=== PATIENT | female | born 1990 | race Caucasian/White ===

== ENCOUNTER 2024-09-28 13:35 | Outpatient (AMB) | payer OTHER, SELFPAY ==
--- NOTE | 2024-09-28 13:35 | AMB.OBINITIA ---
Vital Signs 09/28/24 13:45 Height 1.65 m Height Method Stated Weight 84.141 kg Weight Measurement Method Standing Scale BMI 30.9 BP 125/79 Blood Pressure Source Manual Cuff- Auscultation Blood Pressure Location Left Upper Arm Position Sitting Respiration 16 Pulse 86 Pulse Source Monitor Temp 98.1 F Temp Source Oral Pulse Oximetry (%) 99 Oxygen Delivery Method Room Air Allergies/Home Meds Allergies & Medications Allergies No Known Allergies Allergy (Verified 09/28/24 13:49) Medication Reconciliation No Known Home Medications 09/28/24 [History Confirmed 09/28/24] Intake Visit Data Collection New Patient or Established: New Patient (never been to [facility]) Reason for Visit:: OB INITIAL SEEN ONCE SOMEWHERE ELSE Seen by Clinical Staff ONLY (RN/MA): No Soloist Dancer Required: No Do You Feel Safe at Home: Yes Authorities Contacted: N/A PCP or OBGYN visit in last 3 months: Yes Date of Last PCP or OBGYN visit: 08/31/24 Hx Now: Yes Are you currently on any form of Control: No Last menstrual period: 05/18/24 Pain Present Currently: No Pain Scale Used: Calderon-Mosley/Numerical Pain scale:: 0 Smoking Status Smoking Status: Former smoker Questionnaires PHQ-9 PHQ-2 Over the last 2 weeks, how often have you been bothered by any of the following problems? 1. Little interest or pleasure in doing things: not at all 2. Feeling down, depressed, or hopeless: not at all Total score: 0 PHQ-9 3. Trouble falling or staying asleep, or sleeping too much: Not at all 4. Feeling tired or having little energy: Not at all 5. Poor appetite or overeating: Not at all 6. Feeling bad about yourself - or that you are a failure or have let yourself or your family down: Not at all 7. Trouble concentrating on things, such as reading the newspaper or watching television: Not at all 8. Moving or speaking so slowly that other people could have noticed? - Or the opposite - being so fidgety or restless that you have been moving around a lot more than usual: not at all 9. Thoughts that you would be better off or of hurting yourself in some way: Not at all Total score: 0 Source: Developed by Drs. Neil Conn, Heather Hollins, Reji Lopes and colleagues, with an educational neo from [employer]. Social History Living Situation History Marital Status: Lives With: Family Housing: House Tobacco History Smoking Status: Former smoker Alcohol History Alcohol Intake: Former Domestic Abuse History Do You Feel Safe at Home: Yes Past Medical History Past Medical History Have you ever been diagnosed with any of the following: History of Present Illness HPI Narrative The patient is a 34-year-old -0-1-1 history of miscarriage x 1 in the past and 1 in 5 2020 at 40 weeks. Patient stated that she pushed a long time and her daughter weighed 8 pounds 10 ounces at . 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 She has an LMP of 05/18/2024 and is 19 weeks today. OB Initial Visit Menstrual History Menstrual reliability: definite Flow: normal Menstrual regularity: regular Monthly: Yes Age at menarche: 14 On control pills at conception: No Date of positive home test: 06/15/24 Infection History & Risk Evaluation History of STDs: none HIV risk evaluation: low risk Hepatitis B risk evaluation: low risk Patient or partner has history of Genital Herpes: No Varicella/chicken pox status: unknown Genetic Screening & History Genetic Screening/Teratology Counseling - Includes patient, baby's father, or anyone in either family with: 1. Patient's age 35 years or older as of estimated date of delivery: No 2. Thalassemia ([place] Islander, Occitan, Mediterranean, or Background); MCV less than 80: No 3. Neural Tube Defect (Meningomyelocele, Spina Bifida, or Anencephaly): No 4. Congenital Heart Defect: No 5. Down Syndrome: No 6. Anthony-Sachs (Ashkenazi Zoroastrian, Cajun, Tajik [place]): No 7. Jodie Disease (Ashkenazi Zoroastrian): No 8. Familial Dysautonomia (Ashkenazi Zoroastrian): No 9. Sickle Cell Disease or Trait (): No 10. Hemophilia or other blood disorders: No 11. Muscular Dystrophy: No 12. Cystic Fibrosis: No 13. Sumi's Chorea: No 14. Mental Retardation/Autism: No 15. Other inherited genetic or chromosomal disorder: No 16. Maternal Metabolic Disorder (EG,TYPE 1 Diabetes, PKU): No 17. Patient or baby's father had a child with defects not listed above: No 18. Recurrent loss or a stillbirth: No 19. Medications (including supplements, vitamins, herbs or otc drugs)/illicit/recreational drugs/alcohol since last menstrual period: No 20. Any other: No Comments/Counseling: Patient declines NIPT this . Infection History 1. Live with someone with TB or exposed to TB: No 2. Rash or viral illness since last menstrual period: No 3. Hepatitis B,C: No Other (see comments) Source: [employer] OB Flowsheet OB Flowsheet Initial Weight: Not Recorded Date <del>?</del> EGA Weight Edema CTX Effacement BP Fundal ht Pres Dilation Effacement Station Visit Note Alb Glu FHR Mov 09/28/24 <del>?</del> 18w 6d 84.141 kg 125/79 135 Review of Systems Review of Systems Narrative Review of Systems: Patient reports good energy. She reports good movement. She denies abnormal discharge or pelvic pain. She denies any vaginal bleeding. She denies nausea or vomiting or any significant problems this . Systems Reviewed: All systems reviewed, normal except as documented Exam General Limitations: no limitations General Appearance: alert, in no apparent distress, comfortable, cooperative, healthy appearing, well developed and well groomed Neck Neck exam: Present normal inspection, full ROM and trachea midline Chest Chest inspection: Present normal inspection and symmetric chest wall rise Resp Respiratory exam: Present normal lung sounds bilaterally Card Cardiovascular exam: Present regular rate, normal rhythm and normal heart sounds Abdominal Abdominal exam: Present soft and normal bowel sounds External exam: Present normal external exam Bimanual exam: Present normal bimanual exam, uterine enlargement and other (20 week size uterus, previous Pfannenstiel scar well-healed.) Extremities Extremities exam: Present normal inspection and full ROM Assessment & Plan Diagnosis / Problem List (1) Previous section: Status: Acute Plan: For repeat scheduled section at 39 weeks. (2) : Status: Acute Qualifiers: Weeks of gestation: 19 weeks Qualified Code(s): Z3A.19 - 19 weeks gestation of Plan: Patient denies any problems. She declines NIPT. She does have an ultrasound scheduled in October in [place] for structural survey and she will keep this appointment. It was under another physician's order so I will reorder her ultrasound. If there is any problems she should call. Patient did have a visit or 2 in [place] at this with Dr. Rizvi but wanted to follow here with me in [place]. Additional Plan Follow Up: 4 Weeks Office Procedures OB Clinic LOC & Office Proc's Nursing/Assessment Patient Status: Initial/New Patient OB Clinic Nursing Assessment: BP Monitoring, Medication Reconciliation, Update PMH in EMR and Vital Signs OB Clinic Coordination of Care: Complex Care and Chronic Disease 1-5 Special Needs: Heart tones New Patient Charge New Patient Point Assignment: 1099 New Patient Point Charge: OUTPATIENT PHYSICAL THERAPIST Level 2 ([id number])
[2024-09-28 13:45] VITALS: BP 125/79; PULSE 86; RESP 16; TEMP 36.7; O2SAT 99; BMI 30.9
== END 2024-09-28 14:35 | disposition home or self-care (01) ==
PROVIDERS: Supervising Provider Obstetrics & Gynecology; Visit Provider Obstetrics & Gynecology
DX: Z34.92 Encounter for supervision of normal pregnancy, unspecified, second trimester (principal); Z98.891 History of uterine scar from previous surgery; Z3A.19 19 weeks gestation of pregnancy
CPT/HCPCS: 99202; 99215; G0463

== ENCOUNTER 2024-10-23 13:11 | Outpatient (AMB) | payer OTHER, SELFPAY ==
[2024-10-23 13:14] VITALS: BP 107/71; PULSE 93; RESP 14; TEMP 36.1; O2SAT 98; BMI 31.9
--- NOTE | 2024-10-23 13:14 | OBCLNT_ITS ---
Vital Signs 10/23/24 13:14 Height 1.65 m Height Method Stated Weight 87.09 kg Weight Measurement Method Standing Scale BMI 31.9 BP 107/71 Blood Pressure Source Automatic Cuff Blood Pressure Location Left Upper Arm Position Sitting Respiration 14 Pulse 93 Pulse Source Monitor Temp 97 F Temp Source Oral Pulse Oximetry (%) 98 Oxygen Delivery Method Room Air Allergies/Home Meds Allergies & Medications Allergies No Known Allergies Allergy (Verified 10/23/24 13:15) Medication Reconciliation vitamin#30 30 mg iron-10 mg iron-folic acid 1 mg-omg3 capsule cap PO 10/23/24 [History Confirmed 10/23/24] Intake Visit Data Collection New Patient or Established: Established Patient (seen at [facility] within 3 years) Reason for Visit:: 4-week OB visit Seen by Clinical Staff ONLY (RN/MA): No Gauge Controller Required: No Do You Feel Safe at Home: Yes Authorities Contacted: N/A PCP or OBGYN visit in last 3 months: Yes Date of Last PCP or OBGYN visit: 09/28/24 Hx Now: Yes Are you currently on any form of Control: No Last menstrual period: 05/18/24 Pain Present Currently: No Pain Scale Used: Calderon-Mosley/Numerical Pain scale:: 0 Smoking Status Smoking Status: Former smoker Questionnaires Covid-19 Vaccine Questionnaire Has patient been vacinated for Covid-19 Have you been vacinated for Covid-19: No PHQ-9 PHQ-2 Over the last 2 weeks, how often have you been bothered by any of the following problems? 1. Little interest or pleasure in doing things: not at all 2. Feeling down, depressed, or hopeless: not at all Total score: 0 PHQ-9 3. Trouble falling or staying asleep, or sleeping too much: Not at all 4. Feeling tired or having little energy: Not at all 5. Poor appetite or overeating: Not at all 6. Feeling bad about yourself - or that you are a failure or have let yourself or your family down: Not at all 7. Trouble concentrating on things, such as reading the newspaper or watching television: Not at all 8. Moving or speaking so slowly that other people could have noticed? - Or the opposite - being so fidgety or restless that you have been moving around a lot more than usual: not at all 9. Thoughts that you would be better off or of hurting yourself in some way: Not at all Total score: 0 Source: Developed by Drs. Neil Conn, Heather Hollins, Reji Lopes and colleagues, with an educational neo from [employer]. Depression screen completed yes Social History Living Situation History Lives With: Family Housing: House Tobacco History Smoking Status: Former smoker Alcohol History Alcohol Intake: Former Domestic Abuse History Do You Feel Safe at Home: Yes Past Medical History Past Medical History Have you ever been diagnosed with any of the following: Neurological Problems Cerebrovascular Accident (CVA): No Transient Ischemic Attacks (TIA): No Dementia: No Alzheimer's Disease: No Parkinson's Disease: No Cardiology Problems Myocardial Infarction: No Cardiac Arrhythmia: No Atrial Fibrillation: No Respiratory Problems Chronic Obstructive Pulmonary Disease (COPD): No Orthopnea: No Hx Cough: No Cough: No Stomache/Intestinal Problems Liver Cancer: No Hepatitis: No Cirrhosis: No Genital/Urinary Problems Chronic Kidney Disease: No Renal Disease: No Kidney Stones: No Polycystic Kidney Disease: No Neurogenic Bladder: No Inguinal Hernia: No Dialysis: No Prostate Cancer: No Benign Prostatic Hyperplasia: No Reproductive Problems Breast Cancer: No Endometriosis: No Fibroids: No Musculoskeletal Problems Muscular Dystrophy: No Myasthenia Gravis: No Marfan's Syndrome: No Bone Cancer: No Arthritis: No Head,Eye,Nose,Throat Problems Cataracts: No Glaucoma: No Blind: No Retinal Detachment: No Macular Degeneration: No Chronic Ear Infections: No Deafness: No Eye Prosthesis: No Endocrine Problems Diabetes Mellitus Type 1: No Diabetes Mellitus Type 2: No Hypoglycemia: No Chuck's Syndrome: No Jean Pierre's Disease: No Blood Problems Anemia: No Leukemia: No Hemophilia: No Thalassemia: No Sickle Cell Disease: No Clotting Problems: No Psychologic Problems Schizophrenia: No Recreational Drug Use: No Bipolar Disorder: No Other Problems Hospitalization: No Autoimmune Disease: No Down Syndrome: No Autism: No Developmental Delay: No Surgical History Angioplasty: No Appendectomy: No Bariatric Surgery: No History of Present Illness HPI Narrative Patient is a 34-year-old -0-0-1 status post x 1 and presents for routine OB visit. She is 22-2/7 weeks today with an EDC of 02/22/2025. Patient is reporting good movement she denies any contractions or bleeding she knows this is a boy. She has a little girl at home. She had her labs drawn 10/03/2024 and we are waiting for those these were drawn at [email or web address] in [place]. She is concerned about weight gain she started 180 pounds this she is 192 pounds today. She has her ultrasound scheduled in [place] next week. Review of Systems Review of Systems Narrative Review of Systems: No contractions no vaginal bleeding good movement. Visit MERVIN Calculator Estimated Delivery Date Method Current WG Current Estimate 02/23/25 Ultrasound #1 22w 4d Other Estimates 02/22/25 LMP (Certain) 22w 5d Expected Delivery Route/Plan Patient will have a repeat without tubal ligation 02/17/25. Due date 02/22/2025. Initial Weight: Not Recorded Date -?-?-?-?-?-?-?-?-?-?-?-?- EGA Weight Edema CTX Effacement BP Fundal ht Pres Dilation Effacement Station Visit Note Alb Glu FHR Mov 09/28/24 -?-?-?-?-?-?-?-?-?-?-?-?- 18w 6d 84.141 kg 125/79 135 10/23/24 -?-?-?-?-?-?-?-?-?-?-?-?- 22w 3d 87.09 kg absent absent 107/71 25 Needs scheduled 154 Exam Narrative Physical exam: Fundus measuring 25 weeks nontender. Assessment & Plan Diagnosis / Problem List (1) Previous section: Status: Acute Plan: Schedule repeat approximately 725. Due date 02/22/2025. Patient declines tubal ligation. (2) : Status: Acute Qualifiers: Weeks of gestation: 19 weeks Qualified Code(s): Z3A.19 - 19 weeks gestation of Additional Plan Follow Up: 4 Weeks Office Procedures OB Clinic LOC & Office Proc's Nursing/Assessment Patient Status: Established Patient OB Clinic Nursing Assessment: Medication Reconciliation, Update PMH in EMR and Vital Signs OB Clinic Coordination of Care: Complex Care and Chronic Disease 1-5, Education Complex Pt/Fam, Consent,records obtained, informed consent, Education Simp Pt/Fam and Staff clarify orders Special Needs: Heart tones Established Patient Charge Established Patient Point Assignment: 135 Established Patient Point Charge: EP Level 4 (120-155)
== END 2024-10-23 13:40 | disposition home or self-care (01) ==
LOC: HODSOBC 13:11
PROVIDERS: Supervising Provider Obstetrics & Gynecology; Visit Provider Obstetrics & Gynecology
DX: Z34.82 Encounter for supervision of other normal pregnancy, second trimester (principal); Z98.891 History of uterine scar from previous surgery; Z3A.19 19 weeks gestation of pregnancy
CPT/HCPCS: 99214; G0463

== ENCOUNTER 2024-11-25 10:33 | Outpatient (AMB) | payer OTHER, SELFPAY ==
--- NOTE | 2024-11-23 12:42 | AMB.OBVISIT ---
Vital Signs 11/25/24 10:57 Height 1.65 m Height Method Stated Weight 88.054 kg Weight Measurement Method Standing Scale BMI 32.3 BP 107/69 Blood Pressure Source Automatic Cuff Blood Pressure Location Left Upper Arm Position Sitting Respiration 16 Pulse 80 Pulse Source Monitor Temp 97.4 F Temp Source Oral Pulse Oximetry (%) 97 Oxygen Delivery Method Room Air Allergies/Home Meds Allergies & Medications Allergies No Known Allergies Allergy (Verified 11/25/24 10:58) Medication Reconciliation vitamin#30 30 mg iron-10 mg iron-folic acid 1 mg-omg3 capsule cap PO 10/23/24 [History Confirmed 11/25/24] Intake Visit Data Collection New Patient or Established: Established Patient (seen at [facility] within 3 years) Reason for Visit:: CARE Seen by Clinical Staff ONLY (RN/MA): No Life Insurance Specialist Required: No Do You Feel Safe at Home: Yes Authorities Contacted: N/A PCP or OBGYN visit in last 3 months: Yes Hx Now: Yes Are you currently on any form of Control: No Pain Present Currently: No Pain Scale Used: Calderon-Mosley/Numerical Pain scale:: 0 Smoking Status Smoking Status: Former smoker Questionnaires Covid-19 Vaccine Questionnaire Has patient been vacinated for Covid-19 Have you been vacinated for Covid-19: No PHQ-9 PHQ-2 Over the last 2 weeks, how often have you been bothered by any of the following problems? 1. Little interest or pleasure in doing things: not at all 2. Feeling down, depressed, or hopeless: not at all Total score: 0 PHQ-9 3. Trouble falling or staying asleep, or sleeping too much: Not at all 4. Feeling tired or having little energy: Not at all 5. Poor appetite or overeating: Not at all 6. Feeling bad about yourself - or that you are a failure or have let yourself or your family down: Not at all 7. Trouble concentrating on things, such as reading the newspaper or watching television: Not at all 8. Moving or speaking so slowly that other people could have noticed? - Or the opposite - being so fidgety or restless that you have been moving around a lot more than usual: not at all 9. Thoughts that you would be better off or of hurting yourself in some way: Not at all Total score: 0 Source: Developed by Drs. Neil Conn, Heather Hollins, Reji Lopes and colleagues, with an educational neo from [email or web address]. Depression screen completed yes Social History Living Situation History Marital Status: Lives With: Family Housing: House 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: Yes Past Medical History Past Medical History Have you ever been diagnosed with any of the following: Neurological Problems Seizures: No Cardiology Problems Cardiac Arrhythmia: No Heart Murmur: No Respiratory Problems Asthma: No Smoking: No Stomache/Intestinal Problems Gall Bladder Disease: No Genital/Urinary Problems Renal Disease: No Kidney Stones: No Reproductive Problems Breast Cancer: No Endometriosis: No Fibroids: No Genital Herpes: No Gonorrhea: No Pelvic Inflammatory Disease: No Polycystic Ovarian Syndrome: No Previous Pregnancies: Yes (Previous x 1) Musculoskeletal Problems Arthritis: No Rheumatoid Arthritis: No Endocrine Problems Diabetes Mellitus Type 2: No Hyperthyroidism: No Hypothyroidism: No Blood Problems Anemia: No Psychologic Problems Depression: No Anxiety: No Attention Deficit Disorder: No Depression: No Other Problems Hospitalization: Yes (For ) Autoimmune Disease: No Cosmetic Surgery: No Blood Transfusions: No Anesthesia Reactions: No Surgical History Appendectomy: No Bariatric Surgery: No Breast Surgery: No Cholecystectomy: No Additional Surgical History: 2020 History of Present Illness HPI Narrative The patient is a 34-year-old -0-0-1 history of vaginal delivery x 1 in 2020. She has a 4-year-old daughter at home. She knows this she is having a son. She stated she had a glucose challenge test to [facility] and it reported back at 100. We will get these results on her chart. She pushed 3 hours with her first baby they turned her epidural off she can get the baby out and then she ended up with a she is scheduled for repeat she does not think she wants a tubal ligation. Her is planned for 02/17/25. Visit MERVIN Calculator Estimated Delivery Date Method Current WG Current Estimate 02/23/25 Ultrasound #1 27w 1d Other Estimates 02/22/25 LMP (Certain) 27w 2d Expected Delivery Route/Plan Patient will have a repeat without tubal ligation 02/17/25. Due date 02/22/2025. Initial Weight: Not Recorded Date <del>?</del> EGA Weight Edema CTX Effacement BP Fundal ht Pres Dilation Effacement Station Visit Note Alb Glu FHR Mov 09/28/24 <del>?</del> 18w 6d 84.141 kg 125/79 135 10/23/24 <del>?</del> 22w 3d 87.09 kg absent absent 107/71 25 Needs scheduled 154 11/25/24 <del>?</del> 27w 1d 88.054 kg absent absent 107/69 27 GCT 100 on pt portal from [employer] 165 active Assessment & Plan Diagnosis / Problem List (1) Previous section: Status: Acute Assessment and Plan: Schedule repeat at 39 weeks. EDC 02/22/2025. scheduled 02/17/25 (2) : Status: Acute Qualifiers: Weeks of gestation: 27 weeks Qualified Code(s): Z3A.27 - 27 weeks gestation of Additional Plan Follow Up: 2 Weeks Office Procedures OB Clinic LOC & Office Proc's Nursing/Assessment Patient Status: Established Patient OB Clinic Nursing Assessment: Medication Reconciliation, Update PMH in EMR and Vital Signs OB Clinic Coordination of Care: Complex Care and Chronic Disease 1-5, Consent,records obtained, informed consent, Education Simp Pt/Fam and Staff clarify orders Special Needs: Heart tones Established Patient Charge Established Patient Point Assignment: 115 Established Patient Point Charge: EP Level 3 (80-115)
[2024-11-25 10:57] VITALS: BP 107/69; PULSE 80; RESP 16; TEMP 36.3; O2SAT 97; BMI 32.3
== END 2024-11-25 11:13 | disposition home or self-care (01) ==
LOC: HODSOBC 10:33
PROVIDERS: Supervising Provider Obstetrics & Gynecology; Visit Provider Obstetrics & Gynecology
DX: O09.292 Supervision of pregnancy with other poor reproductive or obstetric history, second trimester (principal); O34.219 Maternal care for unspecified type scar from previous cesarean delivery; Z3A.27 27 weeks gestation of pregnancy; Z87.891 Personal history of nicotine dependence
CPT/HCPCS: 99213; G0463

== ENCOUNTER 2024-12-09 11:29 | Outpatient (AMB) | payer OTHER, SELFPAY ==
[2024-12-09 11:50] VITALS: BP 116/72; PULSE 86; RESP 18; TEMP 36.6; O2SAT 99; BMI 32.2
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
== END 2024-12-09 13:02 | disposition home or self-care (01) ==
LOC: HODSOBC 11:29
PROVIDERS: Supervising Provider Obstetrics & Gynecology; Visit Provider Obstetrics & Gynecology

== ENCOUNTER 2024-12-25 14:52 | Outpatient (AMB) | payer OTHER, SELFPAY ==
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
[2024-12-25 15:16] VITALS: BP 111/72; PULSE 105; RESP 20; TEMP 36.4; O2SAT 97; BMI 32.9
[2024-12-25 16:48] LABS: Bilirubin,Urine Clinitek Negative (Negative); Blood,Urine Clinitek Negative (Negative); Glucose, Urine Clinitek Negative (Negative); Ketones,Urine Clinitek Trace (Negative); Leukocyte Esterase,Urine Clin Negative (Negative); Nitrite,Urine Clinitek Negative (Negative); Protein,Urine Clinitek Negative (Neg - Trace); Specific Gravity,Urine Clin 1.025 (1.001-1.030); Urobilinogen,Urine Clinitek 0.2 mg/dL (0.0-1.0)
== END 2024-12-25 15:38 | disposition home or self-care (01) ==
LOC: HODSOBC 14:52
PROVIDERS: Supervising Provider Obstetrics & Gynecology; Visit Provider Obstetrics & Gynecology
DX: O09.293 Supervision of pregnancy with other poor reproductive or obstetric history, third trimester (principal); Z3A.31 31 weeks gestation of pregnancy; O34.219 Maternal care for unspecified type scar from previous cesarean delivery; Z87.891 Personal history of nicotine dependence
CPT/HCPCS: 81001; 99215; G0463

== ENCOUNTER 2025-01-18 11:10 | Outpatient (AMB) | payer OTHER, SELFPAY ==
[2025-01-18 13:08] VITALS: BP 109/61; PULSE 114; RESP 20; TEMP 36.2; O2SAT 98; BMI 32.5
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
== END 2025-01-18 13:28 | disposition home or self-care (01) ==
LOC: HODSOBC 11:10
PROVIDERS: Supervising Provider Obstetrics & Gynecology; Visit Provider Obstetrics & Gynecology
DX: O09.293 Supervision of pregnancy with other poor reproductive or obstetric history, third trimester (principal); Z3A.34 34 weeks gestation of pregnancy; O34.219 Maternal care for unspecified type scar from previous cesarean delivery; Z87.59 Personal history of other complications of pregnancy, childbirth and the puerperium; Z78.9 Other specified health status; Z87.891 Personal history of nicotine dependence
CPT/HCPCS: 99214; G0463

== ENCOUNTER 2025-01-27 11:04 | Outpatient (AMB) | payer OTHER, SELFPAY ==
[2025-01-27 11:43] VITALS: BP 111/72; PULSE 93; RESP 17; TEMP 36.6; O2SAT 98; BMI 32.5
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
== END 2025-01-27 12:35 | disposition home or self-care (01) ==
LOC: HODSOBC 11:04
PROVIDERS: Supervising Provider Obstetrics & Gynecology; Visit Provider Obstetrics & Gynecology
DX: O09.893 Supervision of other high risk pregnancies, third trimester (principal); Z3A.36 36 weeks gestation of pregnancy; O99.613 Diseases of the digestive system complicating pregnancy, third trimester; K64.5 Perianal venous thrombosis; O09.293 Supervision of pregnancy with other poor reproductive or obstetric history, third trimester; O34.219 Maternal care for unspecified type scar from previous cesarean delivery; Z87.59 Personal history of other complications of pregnancy, childbirth and the puerperium; Z87.891 Personal history of nicotine dependence; Z36.85 Encounter for antenatal screening for Streptococcus B
CPT/HCPCS: 99213; G0463

== ENCOUNTER 2025-02-03 09:48 | Outpatient (AMB) | payer OTHER, SELFPAY ==
[2025-02-03 10:16] VITALS: BP 100/68; PULSE 96; RESP 17; TEMP 36.6; O2SAT 96; BMI 32.7
--- NOTE | 2025-02-03 10:16 | OBCLNT_ITS ---
Vital Signs 02/03/25 10:16 Height 1.65 m Height Method Stated Weight 89.131 kg Weight Measurement Method Standing Scale BMI 32.7 BP 100/68 Blood Pressure Source Automatic Cuff Blood Pressure Location Right Upper Arm Position Sitting Respiration 17 Pulse 96 Pulse Source Monitor Temp 97.8 F Temp Source Temporal Artery Scan Pulse Oximetry (%) 96 Oxygen Delivery Method Room Air Allergies/Home Meds Allergies & Medications Allergies No Known Allergies Allergy (Verified 02/03/25 10:17) Medication Reconciliation vitamin#30 30 mg iron-10 mg iron-folic acid 1 mg-omg3 capsule cap PO 10/23/24 [History Confirmed 02/03/25] Intake Visit Data Collection New Patient or Established: Established Patient (seen at [facility] within 3 years) Reason for Visit:: OBC Seen by Clinical Staff ONLY (RN/MA): No Child Development Director Required: No Do You Feel Safe at Home: Yes Authorities Contacted: N/A PCP or OBGYN visit in last 3 months: Yes Date of Last PCP or OBGYN visit: 01/27/25 Hx Now: Yes Pain Present Currently: No Pain Scale Used: Calderon-Mosley/Numerical Pain scale:: 0 Smoking Status Smoking Status: Former smoker Questionnaires Covid-19 Vaccine Questionnaire Has patient been vacinated for Covid-19 Have you been vacinated for Covid-19: No PHQ-9 PHQ-2 Over the last 2 weeks, how often have you been bothered by any of the following problems? 1. Little interest or pleasure in doing things: not at all 2. Feeling down, depressed, or hopeless: not at all Total score: 0 PHQ-9 3. Trouble falling or staying asleep, or sleeping too much: Not at all 4. Feeling tired or having little energy: Not at all 5. Poor appetite or overeating: Not at all 6. Feeling bad about yourself - or that you are a failure or have let yourself or your family down: Not at all 7. Trouble concentrating on things, such as reading the newspaper or watching television: Not at all 8. Moving or speaking so slowly that other people could have noticed? - Or the opposite - being so fidgety or restless that you have been moving around a lot more than usual: not at all 9. Thoughts that you would be better off or of hurting yourself in some way: Not at all Total score: 0 If you checked off any problems, how difficult have these problems made it for you to do your work, take care of things at home, or get along with other p eople?: not difficult at all Source: Developed by Drs. Neil Conn, Heather Hollins, Reji Lopes and colleagues, with an educational neo from [employer]. Depression screen completed yes Social History Living Situation History Marital Status: Lives With: Family Housing: House Housing Other:: Has a four year old daughter at home. 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: Past Medical History Past Medical History: No Hx Hypothyroidism, No Hx Hyperthyroidism, No Hx Breast Cancer, No Hx Anemia, No Hx Renal Disease, No Hx Diabetes Mellitus Type 1, No Hx Diabetes Mellitus Type 2 and No Hx Polycystic Ovarian Syndrome Care OB Visit Log OB Flowsheet Initial Weight: Not Recorded Date -?-?-?-?-?-?-?-?-?-?-?-?- EGA Weight BP Alb Glu CTX Pres Fundal ht FHR Mov Dilation Station Effacement Hx Notes Visit Note 09/28/24 -?-?-?-?-?-?-?-?-?-?-?-?- 18w 6d 84.141 kg 125/79 135 10/23/24 -?-?-?-?-?-?-?-?-?-?-?-?- 22w 3d 87.09 kg 107/71 absent 25 154 Needs scheduled 7-10/1311/25/24 -?-?-?-?-?-?-?-?-?-?-?-?- 27w 1d 88.054 kg 107/69 absent 27 165 ac tive GCT 100 on pt portal from [facility] 12/09/24 -?-?-?-?-?-?-?-?-?-?-?-?- 29w 1d 87.713 kg 116/72 absent 30 156 ac tive scheduled CS 12/25/24 -?-?-?-?-?-?-?-?-?-?--?-?- 31w 3d 89.584 kg 111/72 absent 32 159 ac tive No USc, VB or LOF. CS date reviewed. Wants to go home in 24 hours 01/18/25 -?-?-?--?-?-?-?-?-?-?-?-?- 34w 6d 88.507 kg 109/61 occasional 33 158 active No contractions. Had some left rib pain after intercourse. Sounds like some type of a rib displacement and muscle spasm. This is gone now. No bleeding no loss of fluids no contractions. She is 36 weeks and will have a February 17. Needs a strep screen next visit 01/27/25 -?-?-?-?-?-?-?-?-?-?-?-?- 36w 1d 88.564 kg 111/72 occasional 35 163 active Has a thrombosed hemorrhoid. Tried to go to the ER at [facility] they sent her to triage and then sent her home without resolving her problem. Went to a walk-in clinic. Topical steroids and sitz bath's not effective. 3 x 2 cm thrombosed hemorrhoid present. 02/03/25 -?-?-?-?-?-?-?-?-?-?-?-?- 37w 1d 89.131 kg 100/68 occasional 37 ac tive No vaginal bleeding or loss of fluids. Dr. Kaur drained her thrombosed hemorrhoid and it feels much better. MERVIN Calculator Estimated Delivery Date Method Current WG Current Estimate 02/23/25 Ultrasound #1 37w 1d Other Estimates 02/22/25 LMP (Certain) 37w 2d Expected Delivery Route/Plan Patient is a 34-year-old -0-1-1 status post x 1 for arrest of descent. Patient will have a repeat without tubal ligation 02/17/25. Due date 02/22/2025. Specific Issue/Plans Rubella nonimmune for immunization labs: A positive\antibody negative\rubella nonimmune\RPR nonreactive\hepatitis B surface antigen negative\HIV negative Notes Visit Date: 01/27/25 Last Updated by: Prema Squires (OB Clinic), Group B strep swab performed. Patient referred to Dr. Sharee Kaur in [place] for drainage of thrombosed hemorrhoid. Visit Date: 01/18/25 Last Updated by: Prema Squires (OB Clinic)MD Will need GBS swab next visit Visit Date: 12/25/24 Last Updated by: Prema Squires (OB Clinic)MD CS date and time reviewed. Wants to go home in 24 hours Office Procedures OB Clinic LOC & Office Proc's Nursing/Assessment Patient Status: Established Patient OB Clinic Nursing Assessment: Medication Reconciliation, Update PMH in EMR and Vital Signs OB Clinic Coordination of Care: Complex Care and Chronic Disease 1-5, Consent,records obtained, informed consent, Education Simp Pt/Fam and Staff clarify orders Special Needs: Heart tones Established Patient Charge Established Patient Point Assignment: 115 Established Patient Point Charge: EP Level 3 (80-115)
== END 2025-02-03 10:34 | disposition home or self-care (01) ==
LOC: HODSOBC 09:48
PROVIDERS: Supervising Provider Obstetrics & Gynecology; Visit Provider Obstetrics & Gynecology
DX: O09.293 Supervision of pregnancy with other poor reproductive or obstetric history, third trimester (principal); O34.219 Maternal care for unspecified type scar from previous cesarean delivery; Z3A.37 37 weeks gestation of pregnancy; Z87.59 Personal history of other complications of pregnancy, childbirth and the puerperium; Z87.891 Personal history of nicotine dependence
CPT/HCPCS: 99213; G0463

== ENCOUNTER 2025-02-12 13:41 | Outpatient (AMB) | payer OTHER, SELFPAY ==
[2025-02-12 13:56] VITALS: BP 121/81; PULSE 110; RESP 17; TEMP 36.4; O2SAT 97; BMI 32.8
--- NOTE | 2025-02-12 13:56 | OBCLNT_ITS ---
Vital Signs 02/12/25 13:56 Height 1.65 m Height Method Measured Weight 89.414 kg Weight Measurement Method Standing Scale BMI 32.8 BP 121/81 Blood Pressure Source Automatic Cuff Blood Pressure Location Right Upper Arm Position Sitting Respiration 17 Pulse 110 H Pulse Source Monitor Temp 97.5 F Temp Source Temporal Artery Scan Pulse Oximetry (%) 97 Oxygen Delivery Method Room Air Allergies/Home Meds Allergies & Medications Allergies No Known Allergies Allergy (Verified 02/12/25 13:57) Medication Reconciliation vitamin#30 30 mg iron-10 mg iron-folic acid 1 mg-omg3 capsule cap PO 10/23/24 [History Confirmed 02/12/25] Intake Visit Data Collection New Patient or Established: Established Patient (seen at [facility] within 3 years) Reason for Visit:: OBC Seen by Clinical Staff ONLY (RN/MA): No 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 1. Little interest or pleasure in doing things: not at all 2. Feeling down, depressed, or hopeless: not at all Total score: 0 PHQ-9 3. Trouble falling or staying asleep, or sleeping too much: Not at all 4. Feeling tired or having little energy: Not at all 5. Poor appetite or overeating: Not at all 6. Feeling bad about yourself - or that you are a failure or have let yourself or your family down: Not at all 7. Trouble concentrating on things, such as reading the newspaper or watching television: Not at all 8. Moving or speaking so slowly that other people could have noticed? - Or the opposite - being so fidgety or restless that you have been moving around a lot more than usual: not at all 9. Thoughts that you would be better off or of hurting yourself in some way: Not at all Total score: 0 If you checked off any problems, how difficult have these problems made it for you to do your work, take care of things at home, or get along with other people?: not difficult at all Source: Developed by Drs. Neil Conn, Heather Hollins, Reji Lopes and colleagues, with an educational neo from [employer]. Depression screen completed yes Social History Living Situation History Lives With: Family Housing: House Housing Other:: Has a four year old daughter at home. 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: Past Medical History Past Medical History: No Hx Hypothyroidism, No Hx Hyperthyroidism, No Hx Breast Cancer, No Hx Anemia, No Hx Renal Disease, No Hx Diabetes Mellitus Type 1, No Hx Diabetes Mellitus Type 2 and No Hx Polycystic Ovarian Syndrome Care OB Visit Log OB Flowsheet Initial Weight: Not Recorded Date -?-?-?-?-?-?-?-?-?-?-?-?- EGA Weight BP Alb Glu CTX Pres Fundal ht FHR Mov Dilation Station Effacement Hx Notes Visit Note 09/28/24 -?-?-?-?-?-?-?-?-?-?-?-?- 18w 6d 84.141 kg 125/79 135 10/23/24 -?-?-?-?-?-?-?-?-?-?-?-?- 22w 3d 87.09 kg 107/71 absent 25 154 Needs scheduled 11/25/24 -?-?-?-?-?-?-?-?-?-?-?-?- 27w 1d 88.054 kg 107/69 absent 27 165 ac tive GCT 100 on pt portal from [facility] 12/09/24 -?-?-?-?-?-?-?-?-?-?-?-?- 29w 1d 87.713 kg 116/72 absent 30 156 ac tive scheduled CS 12/25/24 -?-?-?-?-?-?-?-?-?-?-?-?- 31w 3d 89.584 kg 111/72 absent 32 159 ac tive No USc, VB or LOF. CS date reviewed. Wants to go home in 24 hours 01/18/25 -?-?-?-?-?-?-?-?-?-?-?-?- 34w 6d 88.507 kg 109/61 occasional 33 158 active No contractions. Had some left rib pain after intercourse. Sounds like some type of a rib displacement and muscle spasm. This is gone now. No bleeding no loss of fluids no contractions. She is 36 weeks and will have a February 17. Needs a strep screen next visit 01/27/25 -?-?-?-?-?-?-?-?-?-?-?-?- 36w 1d 88.564 kg 111/72 occasional 35 163 active Has a thrombosed hemorrhoid. Tried to go to the ER at [facility] they sent her to triage and then sent her home without resolving her problem. Went to a walk-in clinic. Topical steroids and sitz bath's not effective. 3 x 2 cm thrombosed hemorrhoid present. 02/03/25 -?-?-?-?-?-?-?-?-?-?-?-?- 37w 1d 89.131 kg 100/68 occasional 37 ac tive No vaginal bleeding or loss of fluids. Dr. Kaur drained her thrombosed hemorrhoid and it feels much better. 02/12/25 -?-?-?-?-?-?-?-?-?-?-?-?- 38w 3d 89.414 kg 121/81 occasional cephalic 38 145 absent No UCs or LOF. Pt dad in hospice. discussed risks of PP depression and recommended counseling. MERVIN Calculator Estimated Delivery Date Method Current WG Current Estimate 02/23/25 Ultrasound #1 38w 3d Other Estimates 02/22/25 LMP (Certain) 38w 4d Expected Delivery Route/Plan Patient is a 34-year-old -0-1-1 status post x 1 for arrest of descent. Patient will have a repeat without tubal ligation 02/17/25. Due date 02/22/2025. Specific Issue/Plans Rubella nonimmune for immunization labs: A positive\antibody negative\rubella nonimmune\RPR nonreactive\hepatitis B surface antigen negative\HIV negative Notes Visit Date: 02/12/25 Last Updated by: Prema Squires ([facility] Clinic)MD Has another small thrombosed hemorrhoid and following up with Dr Kaur. Consented for a repeat CS without BTL. Wants to leave in 24 hours due to family issues. Visit Date: 01/27/25 Last Updated by: Prema Squires (OB Clinic)MD Group B strep swab performed. Patient referred to Dr. Sharee Kaur in [place] for drainage of thrombosed hemorrhoid. Visit Date: 01/18/25 Last Updated by: Prema Squires (OB Clinic)MD Will need GBS swab next visit Visit Date: 12/25/24 Last Updated by: Prema Squires (OB Clinic)MD CS date and time reviewed. Wants to go home in 24 hours Office Procedures OB Clinic LOC & Office Proc's Nursing/Assessment Patient Status: Established Patient OB Clinic Nursing Assessment: Medication Reconciliation, Update PMH in EMR and Vital Signs OB Clinic Coordination of Care: Complex Care and Chronic Disease 1-5, Consent,records obtained, informed consent and Staff clarify orders Special Needs: Heart tones Established Patient Charge Established Patient Point Assignment: 100 Established Patient Point Charge: EP Level 3 (80-115)
== END 2025-02-12 15:35 | disposition home or self-care (01) ==
LOC: HODSOBC 13:41
PROVIDERS: PCP Obstetrics & Gynecology; Referring Provider Obstetrics & Gynecology; Supervising Provider Obstetrics & Gynecology; Visit Provider Obstetrics & Gynecology
DX: O09.293 Supervision of pregnancy with other poor reproductive or obstetric history, third trimester (principal); O34.219 Maternal care for unspecified type scar from previous cesarean delivery; O09.893 Supervision of other high risk pregnancies, third trimester; O99.613 Diseases of the digestive system complicating pregnancy, third trimester; K64.5 Perianal venous thrombosis; Z3A.38 38 weeks gestation of pregnancy; Z87.59 Personal history of other complications of pregnancy, childbirth and the puerperium; Z87.891 Personal history of nicotine dependence
CPT/HCPCS: 99213; G0463

== ENCOUNTER 2025-02-17 05:14 | Inpatient (IN) | payer OTHER, SELFPAY ==
[2025-02-17] VITALS (15 sets, daily range): BP systolic 0–111; BP diastolic 0–70; PULSE 73–114; RESP 16–22; TEMP 35.7–37; O2SAT 96–99; BMI 32.1
[2025-02-17 06:22] LABS: Basophils # (Auto) 0.0 Thou/mm3 (0.0-0.2); Basophils % (Auto) 0 % (0-2.5); Eosinophils # (Auto) 0.0 Thou/mm3 (0.0-0.5); Eosinophils % (Auto) 0 % (0-10); Hematocrit 38.4 % (36.0-46.0); Hemoglobin 13.6 g/dL (12.0-16.0); Immature Granulocytes Auto 0.06 Thou/mm3 (0.00-0.00); Lymphocytes # (Auto) 2.3 Thou/mm3 (1.0-4.8); Lymphocytes % (Auto) 25 % (10-50); Mean Corpuscular HGB Conc 35.4 g/dl (31.0-37.0); Mean Corpuscular Hemoglobin 28.8 pg (25.0-35.0); Mean Corpuscular Volume 81 fL (80-100); Monocytes # (Auto) 0.7 Thou/mm3 (0.0-0.8); Monocytes % (Auto) 8 % (0-12); Neutrophils # (Auto) 5.9 Thou/mm3 (1.8-7.7); Neutrophils % (Auto) 66 % (37-80); Nucleated Red Blood Cell # 0.00 Thou/mm3 (0.00-0.00); Nucleated Red Blood Cell % 0 /100 WBC (0); Platelet Count 222 Thou/mm3 (140-440); RDW Standard Deviation 38.6 fL (36.4-46.3); Red Blood Count 4.72 Miln/mm3 (4.00-5.20); White Blood Count 9.0 Thou/mm3 (3.6-11.0)
[2025-02-17] MEDS: RINGERS LACTATED 1000 ML 1,000 ML 100 ML IV ×2 (06:30→22:21)
[2025-02-17 06:44] LABS: Amphetamine/Metham Scrn,Ur OB Negative (Negative); Benzoylecgonine Screen, Ur OB Negative (Negative); Opiate Screen,Urine OB Negative (Negative); THC Screen,Urine OB Negative (Negative)
[2025-02-17 07:20] LABS: Syphilis Nonreactive (Nonreactive)
[2025-02-17] MEDS: ceFAZolin/D5W 2 GM IV 2 GM/100 ML BAG IV (07:20)
[2025-02-17] MEDS: FAMOTIDINE INJ 10 MG/ML VIAL 2 ML 20 MG IV (07:20)
[2025-02-17] MEDS: CITRIC ACID/SODIUM CITR 15 ML UDC (BICITRA) 30 ML PO (07:20)
--- NOTE | 2025-02-17 08:18 | PD.LDHP ---
Documentation for date of: 02/17/25 OB Labor/Induct. 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 She presents for scheduled elective repeat section. All care is up-to-date and on the chart with the [facility] OB clinic. She has been seeing Dr. Sepideh Squires. I also delivered her last baby 4 years ago. On presentation she reported good movement, she has been having irregular contractions, no loss of fluids and no vaginal bleeding History of Present Dating criteria: LMP confirmed by 1st trimester US Adequate Care: Yes Ultrasounds: normal mid trimester US Obstetrical complications: none Medical complications: none Labs Maternal Blood Type: A Pos Labs: Negative: RPR, Hepatitis B, Rubella Titre (Rubella nonimmune) and HIV and Unknown: Chlamydia, Gonorrhea, Herpes Type 1, Herpes Type 2, Group Beta Strep and Covid-19 Past Medical History Surgical History SURGICAL: Positive Section (X1) Meds Home Medications and Allergies Home Medications ?Medication ?Instructions ?Recorded ?Confirmed ?Type vitamin#30 30 mg iron-10 1 cap PO QDAY 10/23/24 02/17/25 History mg iron-folic acid 1 mg-omg3 capsule calcium carbonate-simethicone 1 tab PO PRN 02/17/25 02/17/25 History famotidine 1 tab PO PRN 02/17/25 02/17/25 History Allergies Allergy/AdvReac Type Severity Reaction Status Date / Time No Known Allergies Allergy Verified 02/17/25 06:03 OB Exam Physical Exam Vital signs: Pulse BP 93 96/60 02/17/25 06:53 02/17/25 06:53 Constitutional Constitutional: no acute distress Routine Respiratory Exam Respiratory: Present CTA bilaterally Routine Cardiovascular Exam Cardiovascular: Present RRR Routine Abdominal Exam Abdominal: Present soft and surgical scars (Well-healed Pfannenstiel scar) Comments: Fundus approximately 38 cm Detailed Labor and Delivery Exam Membranes: intact monitor accelerations: 15x15 monitor decelerations: None meterman variability: Moderate (11-25) Contraction frequency (min): Irregular Tachysystole: No Contraction intensity: Mild OB Results Labs 02/17/25 05:50 Labs: Short CBC 02/17/25 Range/Units 05:50 WBC 9.0 (3.6-11.0) Thou/mm3 Hgb 13.6 (12.0-16.0) g/dL Hct 38.4 (36.0-46.0) % Plt Count 222 (140-440) Thou/mm3 OB Assessment & Plan Assessment and Plan (1) Previous section: Status: Acute Assessment and plan: For elective repeat section. The risks of the procedure were discussed with the patient and her including the risk of bleeding, infection, blood transfusion, damage to bowel, bladder, bowel, blood vessels, or any other organs. Prolonged hospital stay should further surgery occur. All questions were answered all consents were signed.
--- NOTE | 2025-02-17 08:23 | PD.GYNPROC ---
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 Sepideh Squires at the [facility]. She had a history of x 1 4 years ago for an arrest disorder. She presents for elective repeat section at 39-2/7 weeks. Pre-Op diagnosis: 1. Intrauterine at 39-2/7 weeks 2. Previous , for elective repeat 3. Rubella nonimmune Post-Op diagnosis: Same Anesthesia type: Spinal Procedure description: After obtaining informed consent, the patient was brought back to the operating room, and spinal anesthesia administered. She was then prepped and draped in the dorsal supine position with a leftward tilt in a normal sterile fashion. A De La Rosa catheter was inserted to the patient's bladder. The patient was given 2 g of Ancef by IV by anesthesia. A Pfannenstiel skin incision was made through the patient's prior scar and carried down to the underlying fascia. The fascia was incised in the midline and the fascial incision extended laterally using Collier scissors. The superior aspect of the fascia was grasped with Catrachito clamps, and the underlying rectus muscles dissected off using blunt and sharp dissection. This was repeated in the inferior aspect the incision. The rectus muscle were the midline and the peritoneum was picked up and entered sharply with Metzenbaums. This was extended superiorly, and inferiorly, with good visualization of the patient's bladder. The bladder blade was inserted ,and the uterus was incised in a low transverse fashion using a scalpel above the bladder reflection. The uterine incision was extended laterally using blunt dissection with the surgeon's fingers. The bag of water was ruptured and copious clear fluid was noted. The bladder blade was removed and the infant was delivered atraumatically. The cord was clamped and cut, and the was handed off to the waiting pediatric staff. Cord blood and cord gases were sent. The placenta was then manually removed and handed off the operating field. The uterus was exteriorized and cleared of all clots and debris. The uterine incision was repaired using 0 Monocryl in a running locked fashion. Excellent hemostasis was noted. The uterus was returned to the patient's abdominal cavity, and copious irrigation carried out with warm normal saline. The uterine incision was reexamined and noted to be hemostatic. After ensuring the rectus muscles were hemostatic, the rectus muscles were closed with the peritoneum with a running suture of 0 Monocryl. The fascia was closed with 0 Vicryl in a running fashion. The subcutaneous tissues were irrigated and found to be hemostatic. These were reapproximated using a running suture of 3-0 plain. The skin was closed with a subcuticular suture of 4-0 Monocryl. The patient tolerated the procedure well, sponge, lap, instrument, and needle counts were correct x 2. The patient went to the recovery area awake and in stable condition. Of note the baby was doing well at the time of dictation. Also of note umbilical cord gases on the baby were normal. Fluids: crystalloid Fluid amount (mL): 1,500 Urine output (mL): 50 Specimen: none Implants: None Estimated blood loss (ml): 300 Findings: Liveborn male in the OA presentation with no nuchal cord and meconium. Apgars were 9 and 9 weight was 8 pounds 13 ounces the placenta was complete spontaneous grossly normal tubes and ovaries were grossly normal. The uterus was grossly normal. She had a very thin lower uterine segment present. There was very little scar tissue present the patient's abdomen. Complications: none Surgical staff Get Ingram EMT DRIVER Operation Date: 02/17/25 07:45 <No data on this case meets the specified criteria> Diagnosis Discharge Diagnosis (1) Previous section: Status: Acute Problem details: Status post repeat section Problem List Completed Was Problem List Reviewed/Reconciled?: Yes
[2025-02-17 11:20] LABS: Chlamydia trachomatis PCR Negative (Not Detect); Neisseria Gonorrhoeae DNA PCR Negative (Not Detect); Trichomonas Negative (Negative)
[2025-02-17] MEDS: KETOROLAC INJ 30 MG/ML VIAL IVP ×2 (12:40→21:29)
[2025-02-17] MEDS: SIMETHICONE 80 MG CHEW PO (12:41)
[2025-02-17] MEDS: OXYTOCIN in NS 20 units 20 UNIT/1,000 ML BAG 125 UNIT IV (14:00)
[2025-02-18 03:28] VITALS: BP 108/68; PULSE 87; RESP 18; TEMP 36.9; O2SAT 97
[2025-02-18 07:32] LABS: Basophils # (Auto) 0.0 Thou/mm3 (0.0-0.2); Basophils % (Auto) 0 % (0-2.5); Eosinophils # (Auto) 0.0 Thou/mm3 (0.0-0.5); Eosinophils % (Auto) 0 % (0-10); Hematocrit 33.1 % (36.0-46.0); Hemoglobin 11.4 g/dL (12.0-16.0); Immature Granulocytes Auto 0.08 Thou/mm3 (0.00-0.00); Lymphocytes # (Auto) 2.0 Thou/mm3 (1.0-4.8); Lymphocytes % (Auto) 15 % (10-50); Mean Corpuscular HGB Conc 34.4 g/dl (31.0-37.0); Mean Corpuscular Hemoglobin 28.7 pg (25.0-35.0); Mean Corpuscular Volume 83 fL (80-100); Monocytes # (Auto) 1.2 Thou/mm3 (0.0-0.8); Monocytes % (Auto) 9 % (0-12); Neutrophils # (Auto) 9.8 Thou/mm3 (1.8-7.7); Neutrophils % (Auto) 75 % (37-80); Nucleated Red Blood Cell # 0.00 Thou/mm3 (0.00-0.00); Nucleated Red Blood Cell % 0 /100 WBC (0); Platelet Count 193 Thou/mm3 (140-440); RDW Standard Deviation 40.3 fL (36.4-46.3); Red Blood Count 3.97 Miln/mm3 (4.00-5.20); White Blood Count 13.1 Thou/mm3 (3.6-11.0)
[2025-02-18] MEDS: KETOROLAC INJ 30 MG/ML VIAL IVP (07:37)
[2025-02-18 07:43] VITALS: BP 110/72; PULSE 84; RESP 18; TEMP 36.7; O2SAT 98
--- NOTE | 2025-02-18 10:24 | PD.LDPPPRG ---
Subjective Subjective Interval history: Patient is resting comfortably in bed. She is breast-feeding. She is ambulating. I removed her dressing and her incisions clean dry intact. Her predelivery and postdelivery hemoglobin are stable her vital signs are stable. Her pain is controlled with oral pain medications. Patient would like to go home today. Her is watching their 4-year-old. Her her father is unfortunately dying and is in hospice. Patient has already had one and states she is recovering faster this time. We will discharge her home today. Exam Vital Signs Temp Pulse Resp BP Pulse Ox O2 Del Method 98.1 F 84 18 110/72 98 Room Air 02/18/25 07:43 02/18/25 07:43 02/18/25 07:43 02/18/25 07:43 02/18/25 07:43 02/18/25 07:43 Narrative Exam Fundus is firm nontender dressing is removed incision clean dry and intact. Objective Labs 02/18/25 06:41 Labs: Laboratory Results - last 24 hr 02/17/25 02/18/25 05:36 06:41 WBC 13.1 H D RBC 3.97 L Hgb 11.4 L D Hct 33.1 L MCV 83 MCH 28.7 MCHC 34.4 RDW Std Deviation 40.3 Plt Count 193 Neut % (Auto) 75 Lymph % (Auto) 15 [place] % (Auto) 9 Eos % (Auto) 0 Baso % (Auto) 0 Neut # (Auto) 9.8 H Lymph # (Auto) 2.0 [place] # (Auto) 1.2 H Eos # (Auto) 0.0 Baso # (Auto) 0.0 Immature Gran # (Auto) 0.08 H Absolute Nucleated RBC 0.00 Immature Gran % 1 H Nucleated RBC % 0 Chlam trachomat DNA PCR Negative N.gonorrhoeae DNA (PCR) Negative Trichomonas DNA Probe Negative Assessment & Plan Problem List (1) Previous section: Problem details: Status post repeat section. Doing well. Discharge instructions given. Will discharge home postoperative day #1. Status: Acute Time Spent With Patient Time: Total time spent is greater than 50% in coordination of care (as documented) at patient's floor/unit and/or counseling patient: Time with patient: less than 15 minutes
--- NOTE | 2025-02-18 10:27 | PD.LDDS ---
DS: Providers Provider Date of admission: 02/17/25 05:14 Primary care physician: Physician No Primary/Family Admitting Provider: Prema Squires MD (OB Clinic) Attending Provider on Admission: Mega Martinez MD Consults: 02/17/25 08:17 Referral Routine Comment: Attending Provider on DC: Prema Squires MD (OB Clinic) Discharging Provider: Prema Squires MD (OB Clinic) Anticipated date of discharge: 02/18/25 DS: Diagnosis Discharge Diagnosis (1) Term delivered: Status: Acute Assessment & Plan: Wants to go home post operative day #1. All discharge instructions given. (2) Previous section: Status: Acute Assessment & Plan: Status post uncomplicated repeat . Problem List Completed Was Problem List Reviewed/Reconciled?: Yes Summary/Hosp Course Brief History: Patient is a 34-year-old -0-1-1 status post primary 4 years ago for an arrest disorder in [place]. She presents for scheduled elective repeat section. All care is up-to-date and on the chart with the [facility] OB clinic. She has been seeing Dr. Sepideh Squires. I also delivered her last baby 4 years ago. On presentation she reported good movement, she has been having irregular contractions, no loss of fluids and no vaginal bleeding. The patient underwent an uncomplicated repeat the morning of 02/17/2025. EBL was 300 cc. Please see op report for further details On postoperative day #1, patient was ambulating, passing flatus, tolerating a general diet. Her lochia was mild. Her pain was controlled with oral pain medication. Patient desired to go home postoperative day #1. Predelivery hemoglobin was 13.6. Postdelivery hemoglobin is 11.4. Patient will be discharged home postoperative day #1 in stable condition. Peripartum Data Delivery Method: Low Transverse Procedures: Procedures Operation Date: 02/17/25 07:45 Actual Procedure Side Surgeon p in OB Not Applicable Prema Squires (OB Clinic)MD complications: none Status at Discharge Cognitive/behavioral status at discharge: Patient is alert and oriented x 3 in no apparent distress Functional status at discharge: independent ambulation Overall status at discharge: patient is progressing back to baseline Time Spent with Patient Time attestation: Total time spent providing and/or coordinating discharge services: Time spent: Less than 30 minutes Specific discharge activities: No heavy lifting, heavy exercise, swimming, tampons, bathtubs, intercourse x 6 weeks. Follow-up in 2 weeks for an incision check. Exam Vital Signs Temp Pulse Resp BP Pulse Ox O2 Del Method 98.1 F 84 18 110/72 98 Room Air 02/18/25 07:43 02/18/25 07:43 02/18/25 07:43 02/18/25 07:43 02/18/25 07:43 02/18/25 07:43 Narrative Exam Fundus firm nontender incision clean dry and intact extremities show minor edema no significant erythema. Discharge Plan Plan Patient Disposition: HOME (Self Care) Disposition Comment: Stable Prescriptions/Referrals Prescriptions/Med Rec: New hydrocodone-acetaminophen 5-325 mg Tablet 2 tab PO Q6HR MDD 8 PRN (Reason: Patient rated pain 9 to 10) Qty: 40 0RF ketorolac 10 mg tablet 10 mg PO Q6H PRN (Reason: pain) 5 Days Qty: 20 0RF Continued PNV #[id number] acid-omega3 30 mg iron-10 mg iron-1 mg capsule 1 cap PO QDAY Discontinued calcium carbonate-simethicone [Tums Anti-Gas/Antacid] 1 tab PO PRN famotidine [Pepcid AC] 1 tab PO PRN Referrals: No Primary/Family,Physician [Primary Care Provider] - Patient/Caregiver Discharge Instructions Discharge Activity: other Other Discharge Activity Instructions:: No heavy lifting, exercise, intercourse, tampons, douching, swimming pools, or bathtubs x 6 weeks. Follow-up in 2 weeks for an incision check. Other Discharge Diet Instructions: General diet, drink lots of fluid with breast-feeding. Keep taking vitamins. Education Materials: After Delivery Concerns, C Section Dc Print Language: Belarusian Activity Restrictions/Additional Instructions: Call for heavy bleeding, fevers of 100.4 degrees or higher. Heavy vaginal bleeding. Severe depression. Follow-up in 2 weeks. Stand Alone Forms: [place] Award Info., Patient Portal Info Letter Discharge Order Discharge Orders: Discharge (Routine); Ordered 02/18/25 Ordered By: Prema Squires (OB Clinic) Planned Discharge Date 02/18/25
[2025-02-18 11:25] VITALS: BP 109/74; PULSE 88; RESP 16; TEMP 36.4; O2SAT 96
[2025-02-18] MEDS: HYDROcodone/APAP 5/325 TABLET 2 TAB PO (12:47)
== END 2025-02-18 14:57 | disposition home or self-care (01) | DRG 788 ==
LOC: S4SX 07:24 → S4NX 07:47
PROVIDERS: Admitting Provider Obstetrics & Gynecology; Visit Provider Specialist
PROC: 10D00Z1 Extraction of Products of Conception, Low, Open Approach (ICD-10-PCS; CPT 59514; principal; 2025-02-17 07:30)
DX: O34.211 Maternal care for low transverse scar from previous cesarean delivery (principal); Z37.0 Single live birth; Z3A.39 39 weeks gestation of pregnancy
CPT/HCPCS: 36415; 80307; 85025; 86780; 86850; 86900; 86901; 87491; 87591; 87661; A4314; A4649; J0689; J1100; J1885; J2250; J2274; J2371; J2405; J2590; J3490; J7120; A9270; J2270

== ENCOUNTER 2025-03-10 11:00 | Outpatient (AMB) | payer OTHER, SELFPAY ==
[2025-03-10 11:08] VITALS: BP 138/89; PULSE 75; RESP 16; TEMP 36.5; O2SAT 97; BMI 29.2
--- NOTE | 2025-03-10 11:08 | AMBOBPPN_ITS ---
Vital Signs 03/10/25 11:08 Height 1.6 m Height Method Stated Weight 74.899 kg Weight Measurement Method Standing Scale BMI 29.2 BP 138/89 H Blood Pressure Source Automatic Cuff Blood Pressure Location Left Upper Arm Position Sitting Respiration 16 Pulse 75 Pulse Source Monitor Temp 97.7 F Temp Source Oral Pulse Oximetry (%) 97 Oxygen Delivery Method Room Air Allergies/Home Meds Allergies & Medications Allergies No Known Allergies Allergy (Verified 03/10/25 11:10) Medication Reconciliation vitamin#30 30 mg iron-10 mg iron-folic acid 1 mg-omg3 capsule 1 cap PO QDAY 10/23/24 [History Confirmed 03/10/25] hydrocodone 5 mg-acetaminophen 325 mg tablet 1 tab PO Q6H PRN pain #20 tabs 02/18/25 [Rx Confirmed 03/10/25] hydrocodone 5 mg-acetaminophen 325 mg tablet 2 tab PO Q6HR PRN Patient rated pain 9 to 10 #40 tabs 02/18/25 [Rx Confirmed 03/10/25] Intake Visit Data Collection New Patient or Established: Established Patient (seen at [facility] within 3 years) Reason for Visit:: POST FOLLOW UP Seen by Clinical Staff ONLY (RN/MA): No Rnfa Required: No Do You Feel Safe at Home: Yes Authorities Contacted: N/A PCP or OBGYN visit in last 3 months: Yes Hx Now: No Are you currently on any form of Control: No Pain Present Currently: No Pain Scale Used: Calderon-Mosley/Numerical Pain scale:: 0 Smoking Status Smoking Status: 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 Medical History Past Medical History: No Hx Neurological Disorders, No Hx Hypothyroidism, No Hx Hyperthyroidism, No Hx Breast Cancer, No Hx Cardiac Disorders, No Hx Cancer, No Hx Blood Disorders, No Hx Anemia, No Hx Gastrointestinal Disorders, No Hx Renal Disease, No Hx Diabetes Mellitus Type 1, No Hx Diabetes Mellitus Type 2 and No Hx Polycystic Ovarian Syndrome Questionnaires Covid-19 Vaccine Questionnaire Has patient been vacinated for Covid-19 Have you been vacinated for Covid-19: Yes Social History Living Situation History Marital Status: Lives With: Family Housing: House Housing Other:: Has a four year old daughter at home. Tobacco History Smoking Status: Never smoker Second Hand Smoke Exposure: No Alcohol History Alcohol Intake: Never Domestic Abuse History Do You Feel Safe at Home: Yes EPDS - PP Depression Screening [place] Pospartum Depression Screen I have been able to laugh and see the funny side of things: (0) As much as I always could I have looked forward with enjoyment to things: (0) As much as I ever did I have blamed myself unnecessarily when things went wrong: (0) No, never I have been anxious or worried for no good reason: (0) No, not at all I have felt scared or panicky for no very good reason: (0) No, not at all Things have been getting on top of me: (0) No, I have been coping as well as ever I have been so unhappy that I have had difficulty sleeping: (0) No, not at all I have felt sad or miserable: (0) No, not at all I have been so unhappy that I have been crying: (0) No, never The thought of harming myself has occurred to me: (0) Never Total Score: EPDS Score: Referral is indicated for score of 9 or more, suicidal, or if provider believes patient is depressed regardless of score.: 0 EPDS completed yes Care OB Visit Log OB Flowsheet Initial Weight: Not Recorded Date -?-?-?-?-?-?-?-?-?-?-?-?- EGA Weight BP Alb Glu CTX Pres Fundal ht FHR Mov Dilation Station Effacement Hx Notes Visit Note 09/28/24 -?-?-?-?-?-?-?-?-?-?-?-?- 18w 6d 84.141 kg 125/79 135 10/23/24 -?-?-?-?-?-?-?-?-?-?-?-?- 22w 3d 87.09 kg 107/71 absent 25 154 Needs scheduled 7-10/1311/25/24 -?-?-?-?-?-?-?-?-?-?-?-?- 27w 1d 88.054 kg 107/69 absent 27 165 ac tive GCT 100 on pt portal from [facility] 12/09/24 -?-?-?-?-?-?-?-?-?-?-?-?- 29w 1d 87.713 kg 116/72 absent 30 156 ac tive scheduled CS 12/25/24 -?-?-?-?-?-?-?-?-?-?-?--?- 31w 3d 89.584 kg 111/72 absent 32 159 ac tive No USc, VB or LOF. CS date reviewed. Wants to go home in 24 hours 01/18/25 -?-?-?-?--?-?-?-?-?-?-?-?- 34w 6d 88.507 kg 109/61 occasional 33 158 active No contractions. Had some left rib pain after intercourse. Sounds like some type of a rib displacement and muscle spasm. This is gone now. No bleeding no loss of fluids no contractions. She is 36 weeks and will have a February 17. Needs a strep screen next visit 01/27/25 -?-?-?-?-?-?-?-?-?-?-?-?- 36w 1d 88.564 kg 111/72 occasional 35 163 active Has a thrombosed hemorrhoid. Tried to go to the ER at [facility] they sent her to triage and then sent her home without resolving her problem. Went to a walk-in clinic. Topical steroids and sitz bath's not effective. 3 x 2 cm thrombosed hemorrhoid present. 02/03/25 -?-?-?-?-?-?-?-?-?-?-?-?- 37w 1d 89.131 kg 100/68 occasional 37 ac tive No vaginal bleeding or loss of fluids. Dr. Kaur drained her thrombosed hemorrhoid and it feels much better. 02/12/25 -?-?-?-?-?-?-?-?-?-?-?-?- 38w 3d 89.414 kg 121/81 occasional cephalic 38 145 absent No UCs or LOF. Pt dad in hospice. discussed risks of PP depression and recommended counseling. MERVIN Calculator Estimated Delivery Date Method Current WG Current Estimate 02/23/25 Ultrasound #1 42w 1d Other Estimates 02/22/25 LMP (Certain) 42w 2d Expected Delivery Route/Plan Patient is a 34-year-old -0-1-1 status post x 1 for arrest of descent. Patient will have a repeat without tubal ligation 02/17/25. Due date 02/22/2025. Specific Issue/Plans Rubella nonimmune for immunization labs: A positive\antibody negative\rubella nonimmune\RPR nonreactive\hepatitis B surface antigen negative\HIV negative Notes Visit Date: 02/12/25 Last Updated by: Prema Squires (OB Clinic)MD Has another small thrombosed hemorrhoid and following up with Dr Kaur. Consented for a repeat CS without BTL. Wants to leave in 24 hours due to family issues. Visit Date: 01/27/25 Last Updated by: Prema Squires (OB Clinic)MD Group B strep swab performed. Patient referred to Dr. Sharee Kaur in [place] for drainage of thrombosed hemorrhoid. Visit Date: 01/18/25 Last Updated by: Prema Squires (OB Clinic)MD Will need GBS swab next visit Visit Date: 12/25/24 Last Updated by: Prema Squires (OB Clinic)MD CS date and time reviewed. 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 She states she is feeling faster than her first this time. She denies heavy vaginal bleeding. She denies signs of depression. She is almost 3 weeks today. She left postop day #1. She states her father about 10 days ago. He to meet the baby. He was on hospice. She is a little tearful about the loss of her father but otherwise is coping well. Her is present today with the . The is already gained a pound. She is breast-feeding. Her 4-year-old daughter is adjusting. Exam Narrative Physical exam: Abdomen soft fundus approximately 12 weeks size incision clean dry and intact incision tape still present on abdomen. Peeled off a little at the corner and incision underneath is clean dry and intact. Extremities show no significant edema or erythema General General Appearance: alert, in no apparent distress, comfortable, cooperative, healthy appearing and well groomed Office Procedures OB Clinic LOC & Office Proc's Nursing/Assessment Patient Status: Established Patient OB Clinic Nursing Assessment: Medication Reconciliation, Update PMH in EMR and Vital Signs OB Clinic Coordination of Care: Complex Care and Chronic Disease 1-5, Consent,records obtained, informed consent, Education Simp Pt/Fam, Lab and Imaging orders, Results/Orders obtained and Staff clarify orders Established Patient Charge Established Patient Point Assignment: 105 Established Patient Point Charge: EP Level 3 (80-115) Assessment & Plan Diagnosis / Problem List (1) Routine Follow-Up: (2) Term delivered: Status: Acute Assessment and Plan: Ambulate. Instructions on how to take care of wound reviewed. Follow-up in 4 weeks. Care Reviewed delivery summary and any complications: Yes Perineal / incision healing noted: Yes Screened for depression: Yes Depression counseling provided: No Discussed family planning & contraception: No Counseling on safe resumption of sexual activity: No Counseling on gradual excercise: Yes Discussed and concerns (describe), provided support: Yes Referred to public affairs specialist: No Counseled on good nutrition, hydration, and self care: Yes Reviewed vaccine status: No Chronic & current problems reconciled on problem list: Yes Additional follow up plans: Follow-up in 4 weeks. Will discuss contraception then. Infant care discussed; questions answered: feeding and sleep (FP) Tobacco Smoking Status: Never smoker
== END 2025-03-10 11:52 | disposition home or self-care (01) ==
LOC: HODSOBC 11:00
PROVIDERS: PCP Obstetrics & Gynecology; Referring Provider Obstetrics & Gynecology; Supervising Provider Obstetrics & Gynecology; Visit Provider Obstetrics & Gynecology
DX: Z39.2 Encounter for routine postpartum follow-up (principal); Z39.1 Encounter for care and examination of lactating mother
CPT/HCPCS: 99213; G0463

== ENCOUNTER 2025-03-31 13:01 | Outpatient (AMB) | payer OTHER, SELFPAY ==
[2025-03-31 13:15] VITALS: BP 101/68; PULSE 88; RESP 17; TEMP 36.6; O2SAT 98; BMI 31.8
--- NOTE | 2025-03-31 13:15 | AMBOBPPN_ITS ---
Vital Signs 03/31/25 13:15 Height 1.6 m Height Method Measured Weight 81.42 kg Weight Measurement Method Standing Scale BMI 31.8 BP 101/68 Blood Pressure Source Automatic Cuff Blood Pressure Location Right Upper Arm Position Sitting Respiration 17 Pulse 88 Pulse Source Monitor Temp 97.9 F Temp Source Temporal Artery Scan Pulse Oximetry (%) 98 Oxygen Delivery Method Room Air Allergies/Home Meds Allergies & Medications Allergies No Known Allergies Allergy (Verified 03/31/25 13:16) Medication Reconciliation vitamin#30 30 mg iron-10 mg iron-folic acid 1 mg-omg3 capsule 1 cap PO QDAY 10/23/24 [History Confirmed 03/31/25] Intake Visit Data Collection New Patient or Established: Established Patient (seen at [facility] within 3 years) Reason for Visit:: Consent obtained for Telemed Visit: No Seen by Clinical Staff ONLY (RN/MA): No 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: No Do You Feel Safe at Home: Yes Authorities Contacted: N/A PCP or OBGYN visit in last 3 months: Yes Date of Last PCP or OBGYN visit: 03/10/25 Hx Now: No Are you currently on any form of Control: No Pain Present Currently: No Pain scale:: 0 Smoking Status 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 Past Medical History: No Hx Neurological Disorders, No Hx Hypothyroidism, No Hx Hyperthyroidism, No Hx Breast Cancer, No Hx Cardiac Disorders, No Hx Cancer, No Hx Blood Disorders, No Hx Anemia, No Hx Gastrointestinal Disorders, No Hx Renal Disease, No Hx Diabetes Mellitus Type 1, No Hx Diabetes Mellitus Type 2 and No Hx Polycystic Ovarian Syndrome Questionnaires Covid-19 Vaccine Questionnaire Has patient been vacinated for Covid-19 Have you been vacinated for Covid-19: No Social History Living Situation History Marital Status: Lives With: Family Housing: House Housing Other:: Has a four year old daughter at home. Tobacco History Smoking Status: Never smoker Second Hand Smoke Exposure: No Alcohol History Alcohol Intake: Never Domestic Abuse History Do You Feel Safe at Home: Yes EPDS - PP Depression Screening [place] Pospartum Depression Screen I have been able to laugh and see the funny side of things: (0) As much as I always could I have looked forward with enjoyment to things: (0) As much as I ever did I have blamed myself unnecessarily when things went wrong: (0) No, never I have been anxious or worried for no good reason: (0) No, not at all I have felt scared or panicky for no very good reason: (0) No, not at all Things have been getting on top of me: (0) No, I have been coping as well as ever I have been so unhappy that I have had difficulty sleeping: (0) No, not at all I have felt sad or miserable: (0) No, not at all I have been so unhappy that I have been crying: (0) No, never The thought of harming myself has occurred to me: (0) Never Total Score: EPDS Score: Referral is indicated for score of 9 or more, suicidal, or if provider believes patient is depressed regardless of score.: 0 EPDS completed yes Care OB Visit Log OB Flowsheet Initial Weight: Not Recorded Date -?-?-?-?-?-?-?-?-?-?-?-?- EGA Weight BP Alb Glu CTX Pres Fundal ht FHR Mov Dilation Station Effacement Hx Notes Visit Note 09/28/24 -?-?-?-?-?-?-?-?-?-?-?-?- 18w 6d 84.141 kg 125/79 135 10/23/24 -?-?-?-?-?-?-?-?-?-?-?-?- 22w 3d 87.09 kg 107/71 absent 25 154 Needs scheduled -10/1311/25/24 -?-?-?-?-?-?-?-?-?-?-?-?- 27w 1d 88.054 kg 107/69 absent 27 165 ac tive GCT 100 on pt portal from [facility] 12/09/24 -?-?-?-?-?-?-?-?-?-?-?-?- 29w 1d 87.713 kg 116/72 absent 30 156 ac tive scheduled CS 12/25/24 -?-?-?-?-?-?-?-?-?-?-?-?- 31w 3d 89.584 kg 111/72 absent 32 159 ac tive No USc, VB or LOF. CS date reviewed. Wants to go home in 24 hours 01/18/25 -?-?-?-?-?-?-?-?-?-?-?-?- 34w 6d 88.507 kg 109/61 occasional 33 158 active No contractions. Had some left rib pain after intercourse. Sounds like some type of a rib displacement and muscle spasm. This is gone now. No bleeding no loss of fluids no contractions. She is 36 weeks and will have a February 17. Needs a strep screen next visit 01/27/25 -?-?-?-?-?-?-?-?-?-?-?-?- 36w 1d 88.564 kg 111/72 occasional 35 163 active Has a thrombosed hemorrhoid. Tried to go to the ER at [facility] they sent her to triage and then sent her home without resolving her problem. Went to a walk-in clinic. Topical steroids and sitz bath's not effective. 3 x 2 cm thrombosed hemorrhoid present. 02/03/25 -?-?-?-?-?-?-?-?-?-?-?-?- 37w 1d 89.131 kg 100/68 occasional 37 ac tive No vaginal bleeding or loss of fluids. Dr. Kaur drained her thrombosed hemorrhoid and it feels much better. 02/12/25 -?-?-?-?-?-?-?-?-?-?-?-?- 38w 3d 89.414 kg 121/81 occasional cephalic 38 145 absent No UCs or LOF. Pt dad in hospice. discussed risks of PP depression and recommended counseling. MERVIN Calculator Estimated Delivery Date Method Current WG Current Estimate 02/23/25 Ultrasound #1 45w 1d Other Estimates 02/22/25 LMP (Certain) 45w 2d Expected Delivery Route/Plan Patient is a 34-year-old -0-1-1 status post x 1 for arrest of descent. Patient will have a repeat without tubal ligation 02/17/25. Due date 02/22/2025. Specific Issue/Plans Rubella nonimmune for immunization labs: A positive\antibody negative\rubella nonimmune\RPR nonreactive\hepatitis B surface antigen negative\HIV negative Notes Visit Date: 02/12/25 Last Updated by: Prema Squires (OB Clinic)MD Has another small thrombosed hemorrhoid and following up with Dr Kaur. Consented for a repeat CS without BTL. Wants to leave in 24 hours due to family issues. Visit Date: 01/27/25 Last Updated by: Prema Squires (OB Clinic)MD Group B strep swab performed. Patient referred to Dr. Sharee Kaur in [place] for drainage of thrombosed hemorrhoid. Visit Date: 01/18/25 Last Updated by: Prema Squires (OB Clinic)MD Will need GBS swab next visit Visit Date: 12/25/24 Last Updated by: Prema Squires (OB Clinic)MD CS date and time reviewed. Wants to go home in 24 hours HPI Interval History: The patient is a 34-year-old -0-1-2 status post repeat scheduled 02/17/2025. The patient went home postoperative day #1 and did very well. Her father was on hospice and has since passed. I saw her 03/10 for a postop check and she was doing quite well. Her son is present today with her. Her daughter is 4 years old and going to preschool at [employer] over the summer 3 times a week she will then go full-time after that. Her has already had a consult with Dr. Harper and is going to get a vasectomy but cannot get in until August. They are going to use condoms for contraception. Her barrow worker is Dr. Lazar. She is breast-feeding. She has no complaints today specifically no heavy bleeding, cramping,discharge, fevers or chills. She is planning on going back to work. 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 Her works for [employer] and works early in the morning and gets home by 9 so they are going to try to arrange childcare between the 2 of them. She denies any problems with depression she is still grieving the loss of her father. 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 No heavy bleeding. No constipation. No urinary complaints. Patient is breast-feeding. No depression. Exam Narrative Physical exam: Fundus firm nontender. 6 weeks size. Incision clean dry and intact and well- healed. No cyanosis clubbing or edema of extremities. General Limitations: no limitations General Appearance: alert, in no apparent distress, comfortable, cooperative, healthy appearing and well groomed Chest Chest inspection: Present normal inspection and symmetric chest wall rise Resp Respiratory exam: Present normal lung sounds bilaterally Card Cardiovascular exam: Present regular rate, normal rhythm and normal heart sounds Abdominal Abdominal exam: Present soft and normal bowel sounds Extremities Extremities exam: Present normal inspection and full ROM Psych Psychiatric exam: Present normal affect and normal mood Skin Skin exam: Present warm, dry, intact and normal color Office Procedures OB Clinic LOC & Office Proc's Nursing/Assessment Patient Status: Established Patient OB Clinic Nursing Assessment: Medication Reconciliation, Update PMH in EMR and Vital Signs OB Clinic Coordination of Care: Complex Care and Chronic Disease 1-5, Consent,records obtained, informed consent, Education Simp Pt/Fam, 4+ Authorizations needed and Results/Orders obtained Established Patient Charge Established Patient Point Assignment: 105 Established Patient Point Charge: EP Level 3 (80-115) Post Follow-up Visit Post Follow up Visit: Yes Assessment & Plan Diagnosis / Problem List (1) Term delivered: Status: Acute (2) care following delivery: Status: Acute Assessment and Plan: Patient can go back to all normal activities and follow-up in 1 year Care Reviewed delivery summary and any complications: Yes Perineal / incision healing noted: Yes Screened for depression: Yes Depression counseling provided: No Discussed family planning & contraception: Yes Contraception planned: Condoms then vasectomy Counseling on safe resumption of sexual activity: Yes Counseling on gradual excercise: Yes Discussed and concerns (describe), provided support: Yes Referred to investigation specialist: No Counseled on good nutrition, hydration, and self care: Yes Reviewed vaccine status: No Chronic & current problems reconciled on problem list: Yes Additional follow up plans: 1 year care discussed; questions answered: feeding and sleep Follow up: routine/prn
== END 2025-03-31 13:41 | disposition home or self-care (01) ==
LOC: HODSOBC 13:01
PROVIDERS: PCP Obstetrics & Gynecology; Referring Provider Obstetrics & Gynecology; Supervising Provider Obstetrics & Gynecology; Visit Provider Obstetrics & Gynecology
DX: Z39.2 Encounter for routine postpartum follow-up (principal); Z39.1 Encounter for care and examination of lactating mother
CPT/HCPCS: 99213; Z1038; G0463